=== PATIENT | female | born 1940 | race Caucasian/White ===

== ENCOUNTER 2019-05-04 11:08 | Emergency (ER) | payer OTHER ==
[~2019-05-04] VITALS: Ht 157.5 cm; Wt 60.0 kg
[~2019-05-04 11:08] MED LIST: ATEN100T; HYDR-2254; HYDR-3498 PO; LEVO50TA7
[2019-05-04 11:14] VITALS: Ht 157.5 cm; Wt 60.0 kg
--- NOTE | 2019-05-04 12:09 | ERD ---
ER Documentation Chief Complaint Chief Complaint RIGHT EYE PAIN/REDNESS SINCE YESTERDAY ROS All systems reviewed and are negative except as per history of present illness. Medications Home Meds Active Scripts Hydrocodone Bit-Acetaminophen* ([place]*) 5-325 Mg Tab, 1 TAB PO DAILY PRN for PAIN, #15 TAB 0 Refills Prov:FOZIA COHN GILMER 10/01/15 Reported Medications Hydrochlorothiazide (Hydrochlorothiazide) 50 Mg Tablet 12/07/09 Levothyroxine Sodium* (Levothyroxine Sodium*) 50 Mcg Tablet 12/07/09 Atenolol* (Atenolol*) 100 Mg Tablet 12/07/09 Allergies Allergies: Coded Allergies: No Known Allergy (Unverified , 01/15/12) PMhx/Soc Medical and Surgical Hx: pt denies Surgical Hx History of Surgery: No Anesthesia Reaction: No Hx Neurological Disorder: No Hx Respiratory Disorders: No Hx Cardiac Disorders: Yes (HTN) Hx Psychiatric Problems: No Hx Miscellaneous Medical Probl: No (thyroid dz) Hx Alcohol Use: No Hx Substance Use: No Hx Tobacco Use: No Physical Exam Vitals Vital Signs Date Temp Pulse Resp B/P (MAP) Pulse Ox O2 O2 Flow FiO2 Time Delivery Rate 05/04/19 97.4 82 18 160/77 99 11:14 (104) Physical Exam Const: No acute distress Head: Atraumatic Eyes: Normal Conjunctiva ENT: Normal External Ears, Nose and Mouth. Neck: Full range of motion. No meningismus. Resp: Clear to auscultation bilaterally Cardio: Regular rate and rhythm, no murmurs Abd: Soft, non tender, non distended. Normal bowel sounds Skin: No petechiae or rashes Back: No midline or flank tenderness Ext: No cyanosis, or edema Neur: Awake and alert Psych: Normal Mood and Affect CHERRIE MANCIA MD May 04, 2019 12:09
--- NOTE | 2019-05-04 12:47 | ERD ---
ER Documentation Chief Complaint Chief Complaint RIGHT EYE PAIN/REDNESS SINCE YESTERDAY HPI 78-year-old female presents complaining of acute right eye redness and pain with decreased vision in the right eye since yesterday. Patient states she was in her normal state of health until yesterday which time she began having an acute red painful eye with loss of vision to the right eye. She reports no diplopia. She reports no fevers or chills. She reports no trauma. Patient reports no previous history of glaucoma, contact lens use ROS All systems reviewed and are negative except as per history of present illness. Medications Home Meds Active Scripts Hydrocodone Bit-Acetaminophen* (Mere[place]*) 5-325 Mg Tab, 1 TAB PO DAILY PRN for PAIN, #15 TAB 0 Refills Prov:FOZIA COHN PA-C 10/01/15 Reported Medications Hydrochlorothiazide (Hydrochlorothiazide) 50 Mg Tablet 12/07/09 Levothyroxine Sodium* (Levothyroxine Sodium*) 50 Mcg Tablet 12/07/09 Atenolol* (Atenolol*) 100 Mg Tablet 12/07/09 Allergies Allergies: Coded Allergies: No Known Allergy (Unverified , 01/15/12) PMhx/Soc Medical and Surgical Hx: pt denies Surgical Hx History of Surgery: No Anesthesia Reaction: No Hx Neurological Disorder: No Hx Respiratory Disorders: No Hx Cardiac Disorders: Yes (HTN) Hx Psychiatric Problems: No Hx Miscellaneous Medical Probl: No (thyroid dz) Hx Alcohol Use: No Hx Substance Use: No Hx Tobacco Use: No FmHx noncontributory to chief complaint Physical Exam Vitals Vital Signs Date Temp Pulse Resp B/P (MAP) Pulse Ox O2 O2 Flow FiO2 Time Delivery Rate 05/04/19 98.0 60 18 156/84 99 Room Air 13:06 (108) 05/04/19 97.4 82 18 160/77 99 11:14 (104) Physical Exam GENERAL: Frail elderly female in no acute distress HEENT: No evidence of head trauma. The face is normal-appearing without evidence of infection or tenderness. Eye: The left eye is essentially normal with normal visual acuity, no evidence of erythema, full range of motion about the extraocular movements and a normal pupil. The right eye, which is the area of the concern, demonstrates a fixed and dilated pupil with cloudiness obscuring the entire anterior chamber. The conjunctive is erythematous with no evidence of foreign body or trauma. The vision is completely gone with light vision only in the right eye. Funduscopic examination is impossible. Intraocular pressures are 39 NECK: C-spine is soft and supple, there is no meningismus. There is no cervical lymphadenopathy. LUNGS: Clear to auscultation bilaterally. There are no rales, wheezes or rhonchi. HEART: Regular rate and rhythm, no murmurs, clicks, rubs or gallops. ABDOMEN: Soft, non-tender, non-distended. There are bowel sounds in all four quadrants. No rebound or guarding. EXTREMITIES: There is no peripheral cyanosis or edema. No focal swelling or erythema. NEURO: The patient moves all four extremities with 5/5 strength. Cranial nerves II - XII are intact. Normal gait. Alert and oriented SKIN: There is no apparent rash or petechiae. HEME/LYMPHATIC: There is no evidence of excessive bruising or lymphedema. PSYCHIATRIC: The patient does not appear anxious or depressed. Result Diagram: 05/04/19 1247 05/04/19 1247 Results 24 hrs Laboratory Tests Test 05/04/19 12:47 White Blood Count 7.6 10^3/ul Red Blood Count 4.90 10^6/ul Hemoglobin 13.7 g/dl Hematocrit 43.1 % Mean Corpuscular Volume 88.0 fl Mean Corpuscular Hemoglobin 28.0 pg Mean Corpuscular Hemoglobin Concent 31.8 g/dl Red Cell Distribution Width 11.9 % Platelet Count 224 10^3/UL Mean Platelet Volume 11.1 fl Immature Granulocytes % 0.300 % Neutrophils % 66.2 % Lymphocytes % 23.0 % Monocytes % 7.7 % Eosinophils % 2.0 % Basophils % 0.8 % Nucleated Red Blood Cells % 0.0 /100WBC Immature Granulocytes # 0.020 10^3/ul Neutrophils # 5.1 10^3/ul Lymphocytes # 1.8 10^3/ul Monocytes # 0.6 10^3/ul Eosinophils # 0.2 10^3/ul Basophils # 0.1 10^3/ul Nucleated Red Blood Cells # 0.0 10^3/ul Prothrombin Time 13.3 Sec Prothrombin Time Ratio 1.0 INR International Normalized Ratio 1.00 Activated Partial Thromboplast Time 31.1 Sec Sodium Level 145 mmol/L Potassium Level 3.7 mmol/L Chloride Level 108 mmol/L Carbon Dioxide Level 29 mmol/L Anion Gap 8 Blood Urea Nitrogen 19 mg/dl Creatinine 0.84 mg/dl Est Glomerular Filtrat Rate mL/min mL/min Glucose Level 107 mg/dl Calcium Level 9.8 mg/dl Current Medications Medications Dose Sig/Singh Start Time Status Last (Trade) Ordered Route PRN Stop Time Admin Dose Reason Admin 500 mg ONCE ONCE 05/04/19 DC 05/04/19 Acetazolamide IV 13:00 13:22 (Diamox) 05/04/19 13:01 Timolol 1 drop ONCE ONCE 05/04/19 DC 05/04/19 Maleate RIGHT EYE 13:00 13:48 (Timoptic 05/04/19 13:02 0.5%) [place]ocarpine 1 drop ONCE ONCE 05/04/19 DC 05/04/19 HCl (Isopto RIGHT EYE 13:00 13:48 Carpine 2% 05/04/19 13:02 Oph) 1 drop ONCE ONCE 05/04/19 DC 05/04/19 Apraclonidine RIGHT EYE 13:00 13:49 HCl 05/04/19 13:02 (Iopidine 1% Oph) Procedures/MDM Patient was taken to a room, seen and evaluated. Comfort measures were initiated. Diagnostic tests were ordered and reviewed. CONSULTATION: 1245: Initial attempts at transfer were initiated for higher level of care for ophthalmology MEDICAL DECISION MAKIN-year-old female presents with an acute glaucoma. Montez urias's acute decreased of vision is concerning. She will require emergent ophthalmologic consultation. I have initiated antihypertensive medications and eyedrops. Departure Diagnosis: Primary Impression: Acute glaucoma Condition: Serious DIMITRI RAMIREZ May 04, 2019 12:47
[2019-05-04] MEDS ORDERED: PILOCARPINE 2% 15ML OPH RIGHT EYE ONE ×2 (13:00→15:30)
[2019-05-04] MEDS ORDERED: ACETAZOLAMIDE 500 MG INJ IV ONE (13:00)
[2019-05-04] MEDS ORDERED: APRACLONIDINE 1% 0.1 ML OPH RIGHT EYE ONE ×2 (13:00→15:30)
[2019-05-04] MEDS ORDERED: TIMOLOL 0.5% 5 ML OPH RIGHT EYE ONE ×2 (13:00→15:30)
[2019-05-04] MEDS ORDERED: TETRACAINE 0.5% 4 ML OPH RIGHT EYE ONE (15:00)
[2019-05-04 17:08] VITALS: BP 174/79; PULSE 69; RESP 22
== END 2019-05-04 17:20 | disposition short-term general hospital (02) ==
LOC: FTE 11:08 → E/R 17:20
DX: H40.41 Glaucoma secondary to eye inflammation, right eye (principal); I10 Essential (primary) hypertension
CPT/HCPCS: 80048; 85025; 85610; 85730; 96374; 99285; J1120